=== PATIENT | female | born 1975 | race Caucasian/White ===

== ENCOUNTER 2017-09-01 14:50 | Emergency (ER) | payer OTHER ==
[2017-09-01 15:03] VITALS: RESP 16; TEMP 98.4; O2SAT 96
--- NOTE | 2017-09-01 16:00 | EDPHY ---
General Time Seen by Provider: 09/01/17 15:37 Narrative: CHIEF COMPLAINT: Right foot pain HISTORY OF PRESENT ILLNESS: Patient complains of pain in her right foot. This happened approximately 2 hr ago. She was at a gym when she slipped and fell approximately 6 in. She landed awkwardly, into inversion of her right ankle. Sudden onset of pain in the right midfoot, more lateral than medial. No numbness but some tingling. No weakness. No pain in the heel or ankle. No pain in the proximal right anderson or knee. She did not strike her head or lose consciousness. Pain is minimal at this time. It is moderate when she bears weight. She is able to walk but with difficult gait. She has no other associated complaints or modifying factors. ESTABLISHED ORTHOPEDIST: None currently REVIEW OF SYSTEMS: Ten systems reviewed and are negative unless otherwise noted in the HPI PAST MEDICAL HISTORY: Denies any ongoing medical diagnoses are medications PAST SURGICAL HISTORY: No recent surgical history SOCIAL HISTORY: Nonsmoker. No drug or alcohol use. Lives and works here independently FAMILY HISTORY: Noncontributory EXAMINATION General Appearance: Alert, no distress HEENT: Normocephalic, atraumatic. Pupils equal round reactive. Cardiovascular: Symmetric DP and PT pulses at 2+. There is brisk cap refill in the toes of the right foot with good signs of perfusion. No cyanosis or pallor. Moderate edema to the dorsum of the right foot. Neurological: A&O, sensation to the dorsum of the foot and plantar surfaces symmetric. There is normal strength and proprioception of the right great toe Skin: Warm and dry, no rash. There is ecchymosis and edema to the dorsum of the right foot over the 4th and 5th metatarsals. No puncture, laceration or abrasion. Extremities: Tenderness of the right midfoot over the 4th and 5th metatarsals. There is no tenderness of the toes or right calcaneus. No tenderness of the lateral or medial malleolus, right ankle. No deformity. Range of motion is intact. Psychiatric: Mood and affect normal DIFFERENTIAL DIAGNOSES: Including but not limited to sprain, strain, fracture, dislocation MDM: 4:00 p.m. Inversion injury with acute fracture of the 4th and 5th metatarsals. The 4th metatarsal fracture is minimally displaced. The 5th metatarsal fracture is nondisplaced. I do not appreciate any there acute fractures. There is chronic abnormality appearing change of the talus. I have ordered ibuprofen and the patient will likely need a postoperative shoe versus Noe boot and crutches. 4:15 p.m. Center radiologist has confirmed 4th and 5th metatarsal fractures. No other acute findings. I have informed the patient of this. I printed airline excuse for them as they are scheduled to fly out of town tomorrow. If they do continue to fly, I recommend aspirin prophylaxis for DVT prophylaxis while they were gone. We discussed ibuprofen [id number]. We discussed short course of pain medication as needed for breakthrough pain. She will need to contact the orthopedist for outpatient care. We discussed ED precautions. I have answered all their questions and they are comfortable with this plan. She is discharged home stable condition. SUPERVISION: This patient was independently evaluated without direct involvement of or examination by the attending physician. ED Precautions: Worsening pain. Erythema, edema, cyanosis, pallor, paresthesia or anesthesia. (Danial Aguillon) Medical Decision Making: I did not see this patient while she was in the emergency department. However her care was discussed with the PA while the patient was in the department. I agree with treatment plan and management (Henry Ovalle) - Objective Vital Signs: Initial Vital Signs Temperature (C) 36.9 C 09/01/17 14:59 Heart Rate 95 09/01/17 14:59 Respiratory Rate 16 09/01/17 14:59 Blood Pressure 123/82 H 09/01/17 14:59 O2 Sat (%) 96 09/01/17 14:59 O2 Delivery Mode Room Air Allergies/Adverse Reactions: cat dander Allergy (Verified 09/01/17 15:04) Home Medications: Medication Instructions Recorded oxyCODONE HCL/ACETAMINOPHEN 1 each PO Q4-6PRN PRN #11 tablet 09/01/17 [Percocet 5-325 mg Tablet] Medications Given: Discontinued Medications Ibuprofen (Motrin) 600 mg PO EDNOW ONE Stop: 09/01/17 16:09 Last Admin: 09/01/17 16:11 Dose: 600 mg Departure - Departure Disposition: Home, Routine, Self-Care Clinical Impression: Fracture of 4th metatarsal, Fracture of 5th metatarsal, Right ankle sprain Condition: Good Instructions: Foot Fracture in Adults (ED) Additional Instructions: 1. [place] boot and crutches as provided 2. Ibuprofen 400-600 mg every 6-8 hours as needed 3. Pain medication as provided as needed 4. Contact Orthopedics for definitive care 5. Ice and elevate the extremity often 6. ED precautions as discussed Referrals: Payam Brown MD [Medical Doctor] - As per Instructions Stand Alone Forms: Airline Excuse Prescriptions: oxyCODONE HCL/ACETAMINOPHEN [Percocet 5-325 mg Tablet] 1 each PO Q4-6PRN PRN # 11 tablet PRN Reason: Pain, Breakthrough
[2017-09-01] MEDS ORDERED: IBUPROFEN 600 MG TAB PO ONE (16:08)
[2017-09-01 16:31] VITALS: BP 124/80; PULSE 90
== END 2017-09-01 16:31 | disposition home or self-care (01) ==
DX: S92.341A Displaced fracture of fourth metatarsal bone, right foot, initial encounter for closed fracture (principal); S92.351A Displaced fracture of fifth metatarsal bone, right foot, initial encounter for closed fracture; S93.401A Sprain of unspecified ligament of right ankle, initial encounter; W01.0XXA Fall on same level from slipping, tripping and stumbling without subsequent striking against object, initial encounter